=== PATIENT | male | born 1950 | race Caucasian/White ===

== ENCOUNTER 2018-11-04 12:40 | Emergency (ER) | payer MEDICARE ==
[~2018-11-04] VITALS: Ht 182.9 cm; Wt 113.6 kg
[~2018-11-04 12:40] MED LIST: NO HOME MEDS; TRAM50TA2 PO
[2018-11-04 12:41] VITALS: BP 141/84
== END 2018-11-04 13:44 | disposition home or self-care (01) ==
LOC: ER 12:40
DX: S56.113A Strain of flexor muscle, fascia and tendon of right middle finger at forearm level, initial encounter (principal); X50.9XXA Other and unspecified overexertion or strenuous movements or postures, initial encounter; Y93.89 Activity, other specified; Y92.89 Other specified places as the place of occurrence of the external cause; Y99.8 Other external cause status
CPT/HCPCS: 29130; 73130; 99283

== ENCOUNTER 2023-09-21 12:54 | Emergency (ER) | payer MEDICARE ==
[~2023-09-21] VITALS: Ht 180.3 cm; Wt 119.6 kg
[2023-09-21] MEDS: TETanus/Pertussis (Acell)/Diphther VAC/PF (Tdap-Adult) 0.5ml syringe IMVAC ONE (13:33)
[2023-09-21] MEDS ORDERED: ATOR40TA72 PO (14:05)
[2023-09-21] MEDS ORDERED: METF750T46 PO (14:05)
[2023-09-21] MEDS: LIDOcaine 1% W/epiNEPHrine 1:100,000 20ml vial SQ ONE (15:02)
[2023-09-21] MEDS ORDERED: LIDO700A32 TOP (15:26)
[2023-09-21] MEDS ORDERED: CYCL-1 PO (15:26)
[2023-09-21] MEDS ORDERED: CEPH-585 PO (15:26)
[2023-09-21 16:15] VITALS: BP 164/94; PULSE 90; RESP 18; TEMP 98.3; O2SAT 93
== END 2023-09-21 16:20 | disposition home or self-care (01) ==
LOC: ER 12:55
DX: S01.21XA Laceration without foreign body of nose, initial encounter (principal); M25.511 Pain in right shoulder; E78.00 Pure hypercholesterolemia, unspecified; E11.9 Type 2 diabetes mellitus without complications; Z79.899 Other long term (current) drug therapy; W11.XXXA Fall on and from ladder, initial encounter; Y93.89 Activity, other specified; Y92.89 Other specified places as the place of occurrence of the external cause; Y99.8 Other external cause status
CPT/HCPCS: 12011; 70450; 70486; 72125; 90471; 90715; 99285; L0172; A6449

== ENCOUNTER 2023-10-01 07:49 | Emergency (ER) | payer MEDICARE ==
[~2023-10-01] VITALS: Ht 180.3 cm; Wt 118.8 kg
[~2023-10-01 07:49] MED LIST changes: +ATOR40TA72 PO; +CYCL-1 PO; +LIDO700A32 TOP; +METF750T46 PO; -TRAM50TA2 PO
[2023-10-01 08:04] VITALS: BP 171/101; PULSE 97; RESP 18; TEMP 97.8; O2SAT 98
== END 2023-10-01 11:06 | disposition home or self-care (01) ==
LOC: ER 07:50
DX: S01.511D Laceration without foreign body of lip, subsequent encounter (principal); E78.00 Pure hypercholesterolemia, unspecified; E11.9 Type 2 diabetes mellitus without complications; W22.8XXD Striking against or struck by other objects, subsequent encounter; Z79.899 Other long term (current) drug therapy
CPT/HCPCS: 99281